=== PATIENT | female | born 1950 | race Caucasian/White ===

== ENCOUNTER → 2023-05-13 | Outpatient (CLI) | payer MEDICARE ==
--- NOTE | 2023-05-13 15:25 | P.SLEEP ---
History of Present Illness DATE: 05/13/2023 CONSULTATION/NEW PATIENT EVALUATION HISTORY OF PRESENT ILLNESS/SLEEP-WAKE EVALUATION: 72-year-old lady had been ev aluated in the sleep center for possible obstructive sleep apnea hypopnea syndrome and insomnia. SLEEP SCHEDULE: Usually sleep schedule from 9 PM to 6 AM. FALLING ASLEEP: Patient has difficulties to fall asleep. Previously she was on treatment with Ambien 10 mg, but recently because you are primary care physician she did not get any prescription. DURING SLEEP: Patient wakes up from sleep up to 9 times with 3 episodes of nocturia. She sleeps by herself, so no clear information about any snoring at the present time. No history of hypnogogical hallucinations, sleep paralysis, or cataplexy. DURING THE DAY/WAKE STATE: Patient complains some problems with memory. [place] sleepiness scale is 1. Patient does not take any naps. PAST MEDICAL HISTORY: Leg cramps, neck and back pain. PAST SURGICAL HISTORY: Hysterectomy, surgery for losing weight about 50 years ago. MEDICATIONS: Morphine sulfate 30 mg twice a day, previously Ambien 10 mg last time took Ambien in February 2023. SOCIAL HISTORY: Smoker for about 55 years, presently about half pack a day, no alcohol consumption. FAMILY HISTORY: Hypertension, cancer. REVIEW OF SYSTEMS: Difficulties to initiate sleep, multiple awakenings from sleep. No fevers. No double vision. No recent chest pain. No shortness of breath. No abdominal pain. No bleeding episodes. No blood in urine. No seizure episodes. PHYSICAL EXAMINATION: GENERAL: A pleasant patient without any distress. VITAL SIGNS: Please see below, BMI 18.9. HEENT: PERRLA, EOMI. Evaluation of oropharynx showed tongue protrudes midline, low position of soft palate Mallampati 3. NECK: Supple. No JVD. Thyroid is not palpable. 13.5 inches in circumference. LUNGS: Clear to percussion and to auscultation. Good air exchange. No wheezing or rhonchi. HEART: S1, S2 regular. No murmurs, gallops or rubs. ABDOMEN: Soft and nontender. Bowel sounds are present. No organomegaly appreciated. EXTREMITIES: No clubbing or cyanosis. ANALYTICS LEADER: Awake, alert, and oriented x3. Cranial nerves 2 to 7 intact. There is no fasciculation or atrophy noted. No focal deficits observed. ASSESSMENT: 1. Multiple awakenings from sleep, low position of soft palate Mallampati 3. Possible obstructive sleep apnea hypopnea syndrome. 2. Psychophysiological insomnia, previously successfully treated with Ambien for many years without any side effects. 3. Neck pain. 4. Back pain. 5 patient is on treatment with morphine, which may increase risk for central sleep apnea. 6 . Patient is a smoker for more than 55 years. 7. Leg cramps. 8. Possible restless leg syndrome. PLAN: 1. Polysomnography for evaluation of patient's breathing during sleep and to check for possible leg movements. 2. I discussed with patient how to use worry time and relaxation techniques. 3. I will start patient on Ambien 10 mg at bedtime. She was on that medication for many years before and that improved her sleep, it was no any side effects. 4. No driving if patient feels any sleepiness. Patient is aware of civil and criminal liability for unsafe driving. 5. Sleep hygiene with regular sleep time for at least 7.5-8 hours. 6. Following plan after reading sleep study. Thank you very much for referring this patient for consultation. Sincerely, Nick Jerez MD, PhD, FAASM. Diplomat of [place] [employer], Sleep Medicine Board by [place] [employer] [place] [employer] Business Systems Administrator of [facility] Past Medical History Past Medical History: GERD/Reflux, Rheumatoid Arthritis (RA) Additional Past Medical History / Comment(s): stroke, migrains, leg cramps, mental illness History of Any Multi-Drug Resistant Organisms: None Reported Past Surgical History: Hysterectomy Past Anesthesia/Blood Transfusion Reactions: No Reported Reaction Past Psychological History: Depression Smoking Status: Current every day smoker Past Alcohol Use History: None Reported Past Drug Use History: None Reported Medications and Allergies Home Medications Medication Instructions Recorded Confirmed Type Morphine Sulfate [Morphine Sulfate 30 mg PO TID 05/13/23 05/13/23 History ER] Zolpidem [Ambien] 10 mg PO DAILY 05/13/23 05/13/23 History Sleep Note - Sleep Note Sleep Note: Temperature: Pulse Rate: Respiratory Rate: Blood Pressure: SpO2: Height: Weight: BMI: Neck Circumference:
== END | disposition home or self-care (01) ==
LOC: 3 N SLEEP 13:20
PROVIDERS: ATTEND Internal Medicine
DX: G47.30 Sleep apnea, unspecified (principal); G47.8 Other sleep disorders; G47.62 Sleep related leg cramps; G47.00 Insomnia, unspecified; M54.50 Low back pain, unspecified; M54.2 Cervicalgia
CPT/HCPCS: 99202

== ENCOUNTER → 2023-05-13 | Outpatient (CLI) | payer MEDICARE ==
[2023-05-13 14:22] VITALS: BP 190/91; PULSE 73; RESP 12; TEMP 98
== END ==
LOC: 3 N SLEEP 13:19
PROVIDERS: ATTEND Internal Medicine Critical Care Medicine
DX: Z53.9 Procedure and treatment not carried out, unspecified reason (principal)
CPT/HCPCS: 99202